=== PATIENT | male | born 1950 | race Caucasian/White ===

== ENCOUNTER 2018-05-27 18:36 | Emergency (ER) | payer BC ==
--- NOTE | 2018-05-27 18:38 | ER Report ---
History and Physical Time Seen By MD: 18:37 HPI/ROS CHIEF COMPLAINT: "Detox" HISTORY OF PRESENT ILLNESS: Patient is a 68-year-old male who has no significant past medical history who is brought to the emergency department and is accompanied by his requesting inpatient alcohol withdrawal. Patient states that he is been a chronic alcoholic over the past 3-4 years. 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 He's noticed towards the end of the day he's having difficulty performing his tasks because of tremor. He denies ever going through alcohol withdrawal before he denies having DTs in the past. He has never been admitted for any psychiatric illness or for any type of substance abuse. Patient denies smoking and denies any other illicit drug use. Patient is not feeling suicidal or homicidal. Patient states his last drink was 2 days ago and since that time he's been feeling anxious, has been having insomnia and and has aforementioned tremor. Patient has 3 brothers all of whom from accidental means however to his brothers were "alcoholics" REVIEW OF SYSTEMS: Constitutional: No fever, no chills. Eyes: No discharge. ENT: No sore throat. Cardiovascular: No chest pain, no palpitations. Respiratory: No cough, no shortness of breath. Gastrointestinal: No abdominal pain, no vomiting. Genitourinary: No hematuria. Musculoskeletal: No back pain. Skin: No rashes. Neurological: No headache. Psychiatric: Alcohol withdrawal, no suicidal or homicidal ideation Allergies: Coded Allergies: cephalexin (Verified Allergy, Intermediate, ITCHING, 05/27/18) Home Meds No Active Prescriptions or Reported Meds Past Medical/Surgical History She denies any significant past medical history. Patient is had multiple surgeries to both shoulders also has had a neck surgery as well. Reviewed Nurses Notes: Yes Constitutional Vital Sign - Last 24 Hours 05/27/18 05/27/18 05/27/18 05/27/18 18:45 18:51 18:54 19:00 Temp 98.1 Pulse 73 73 Resp 16 B/P (MAP) 174/102 143/96 (112) 155/102 (119) Pulse Ox 93 92 O2 Delivery Room Air 05/27/18 05/27/18 19:06 19:21 Pulse 73 80 Pulse Ox 91 92 Physical Exam General/Constitutional: Patient is awake, alert, nontoxic and in no acute respiratory distress. She cooperative Head: Normocephalic and atraumatic. Eyes: Conjunctival clear, Pupils are equal and reactive to light. Extraocular muscles are intact and symmetrical. Sclera are clear and anicteric. Ears:External canals are clear. Tympanic membranes are clear with normal landmarks and light reflex. Nares: No rhinorrhea or bleeding. Turbinates are pink and moist. Oropharyngeal: Mucous membranes are moist. There is no pharyngeal erythema or exudate. There are no palatal petechiae. Uvula is midline and symmetrical. Neck: Supple, no adenopathy. No evidence of JVD; no hepatojugular reflux Cardiovascular: Heart is regular rate and rhythm without audible murmurs, rubs or gallops. Pulmonary: Lungs are clear to auscultation bilaterally. There are no wheezes, rales, or rhonchi. Chest rise is symmetrical Abdomen: Soft, nontender, no guarding or peritoneal signs. Extremities: No gross deformities, No peripheral cyanosis. Able to move all 4 extremities. Neuro: Alert and oriented X3, Cranial nerves 2 thru 12 are intact and symmetrical. Patient has normal gait. Slight intention tremor Skin: No rashes, skin is warm dry and well perfused. Psychiatric: Thought process is logical and goal-directed. Patient is cooperative and pleasant mood is cooperative which is congruent with affect. Patient does not seem to be responding to any internal stimuli. Patient denies any suicidal or homicidal ideation. Medical Decision Making Data Points Result Diagram: 05/27/18192405/27/181924 Laboratory Hematology Test 05/27/18 19:25 05/27/18 19:30 Red Blood Count 4.16 M/uL (4.00-5.60) Mean Corpuscular Volume 98.4 fL (80.0-96.0) Mean Corpuscular Hemoglobin 34.1 pg (26.0-33.0) Mean Corpuscular Hemoglobin Concent 34.7 g/dL (32.0-36.0) Red Cell Distribution Width 13.3 % (11.5-14.5) Mean Platelet Volume 7.1 fL (7.2-11.1) Neutrophils (%) (Auto) 58.8 % (39.4-72.5) Lymphocytes (%) (Auto) 28.5 % (17.6-49.6) Monocytes (%) (Auto) 9.6 % (4.1-12.4) Eosinophils (%) (Auto) 2.1 % (0.4-6.7) Basophils (%) (Auto) 1.0 % (0.3-1.4) Nucleated RBC Relative Count (auto) 0.1 /100WBC Neutrophils # (Auto) 3.1 K/uL (2.0-7.4) Lymphocytes # (Auto) 1.5 K/uL (1.3-3.6) Monocytes # (Auto) 0.5 K/uL (0.3-1.0) Eosinophils # (Auto) 0.1 K/uL (0.0-0.5) Basophils # (Auto) 0.1 K/uL (0.0-0.1) Nucleated RBC Absolute Count (auto) 0.00 K/uL Sodium Level 139 mmol/L (137-145) Potassium Level 5.0 mmol/L (3.5-5.0) Chloride Level 104 mmol/L (98-107) Carbon Dioxide Level 29 mmol/L (22-30) Blood Urea Nitrogen 18 mg/dl (9-21) Creatinine 0.90 mg/dl (0.66-1.25) Glomerular Filtration Rate Calc > 60.0 Random Glucose 134 mg/dl (75-110) Calcium Level 9.3 mg/dl (8.4-10.2) Magnesium Level 2.0 mg/dl (1.7-2.2) Total Bilirubin 0.5 mg/dl (0.2-1.3) Aspartate Amino Transf (AST/SGOT) 43 U/L (0-35) Alanine Aminotransferase (ALT/SGPT) 38 U/L (0-56) Alkaline Phosphatase 59 U/L (0-126) Total Protein 7.1 g/dl (6.3-8.2) Albumin 4.2 g/dl (3.5-5.0) Salicylates Level < 10 mg/L Salicylate Last Dose Date unk Acetaminophen Level < 10 ug/ml Serum Alcohol < 10 mg/dl Urine Color Yellow Urine Clarity Clear Urine pH 5.0 pH (4.8-9.5) Urine Specific [place] 1.031 Urine Protein Negative mg/dL (NEGATIVE) Urine Glucose (UA) Negative mg/dL (NEGATIVE) Urine Ketones Trace mg/dL (NEGATIVE) Urine Blood Negative (NEGATIVE) Urine Nitrite Negative (NEGATIVE) Urine Bilirubin Negative (NEGATIVE) Urine Urobilinogen 2.0 mg/dL (0.2-1.9) Urine Leukocyte Esterase Negative (NEGATIVE) Urine RBC 1 /HPF (0-2/HPF) Urine WBC <1 /HPF (0-5/HPF) Urine Squamous Epithelial Cells Few /LPF (</=FEW) Urine Bacteria Negative /HPF (NONE-FEW) Urine Mucus Few /HPF (NONE-FEW) Urine Opiates Screen Negative Urine Barbiturates Screen Negative Ur Tricyclic Antidepressants Screen Negative Urine Phencyclidine Screen Negative Urine Amphetamines Screen Negative Urine Benzodiazepines Screen Negative Urine Cocaine Screen Negative Urine Cannabinoids Screen Positive Chemistry Test 05/27/18 19:25 05/27/18 19:30 White Blood Count 5.3 k/uL (4.5-11.0) Red Blood Count 4.16 M/uL (4.00-5.60) Hemoglobin 14.2 g/dL (14.0-18.0) Hematocrit 41.0 % (42.0-52.0) Mean Corpuscular Volume 98.4 fL (80.0-96.0) Mean Corpuscular Hemoglobin 34.1 pg (26.0-33.0) Mean Corpuscular Hemoglobin Concent 34.7 g/dL (32.0-36.0) Red Cell Distribution Width 13.3 % (11.5-14.5) Platelet Count 205 K/uL (150-450) Mean Platelet Volume 7.1 fL (7.2-11.1) Neutrophils (%) (Auto) 58.8 % (39.4-72.5) Lymphocytes (%) (Auto) 28.5 % (17.6-49.6) Monocytes (%) (Auto) 9.6 % (4.1-12.4) Eosinophils (%) (Auto) 2.1 % (0.4-6.7) Basophils (%) (Auto) 1.0 % (0.3-1.4) Nucleated RBC Relative Count (auto) 0.1 /100WBC Neutrophils # (Auto) 3.1 K/uL (2.0-7.4) Lymphocytes # (Auto) 1.5 K/uL (1.3-3.6) Monocytes # (Auto) 0.5 K/uL (0.3-1.0) Eosinophils # (Auto) 0.1 K/uL (0.0-0.5) Basophils # (Auto) 0.1 K/uL (0.0-0.1) Nucleated RBC Absolute Count (auto) 0.00 K/uL Glomerular Filtration Rate Calc > 60.0 Calcium Level 9.3 mg/dl (8.4-10.2) Magnesium Level 2.0 mg/dl (1.7-2.2) Total Bilirubin 0.5 mg/dl (0.2-1.3) Aspartate Amino Transf (AST/SGOT) 43 U/L (0-35) Alanine Aminotransferase (ALT/SGPT) 38 U/L (0-56) Alkaline Phosphatase 59 U/L (0-126) Total Protein 7.1 g/dl (6.3-8.2) Albumin 4.2 g/dl (3.5-5.0) Salicylates Level < 10 mg/L Salicylate Last Dose Date unk Acetaminophen Level < 10 ug/ml Serum Alcohol < 10 mg/dl Urine Color Yellow Urine Clarity Clear Urine pH 5.0 pH (4.8-9.5) Urine Specific [place] 1.031 Urine Protein Negative mg/dL (NEGATIVE) Urine Glucose (UA) Negative mg/dL (NEGATIVE) Urine Ketones Trace mg/dL (NEGATIVE) Urine Blood Negative (NEGATIVE) Urine Nitrite Negative (NEGATIVE) Urine Bilirubin Negative (NEGATIVE) Urine Urobilinogen 2.0 mg/dL (0.2-1.9) Urine Leukocyte Esterase Negative (NEGATIVE) Urine RBC 1 /HPF (0-2/HPF) Urine WBC <1 /HPF (0-5/HPF) Urine Squamous Epithelial Cells Few /LPF (</=FEW) Urine Bacteria Negative /HPF (NONE-FEW) Urine Mucus Few /HPF (NONE-FEW) Urine Opiates Screen Negative Urine Barbiturates Screen Negative Ur Tricyclic Antidepressants Screen Negative Urine Phencyclidine Screen Negative Urine Amphetamines Screen Negative Urine Benzodiazepines Screen Negative Urine Cocaine Screen Negative Urine Cannabinoids Screen Positive Toxicology Test 05/27/18 19:25 05/27/18 19:30 Salicylates Level < 10 mg/L Salicylate Last Dose Date unk Acetaminophen Level < 10 ug/ml Serum Alcohol < 10 mg/dl Urine Opiates Screen Negative Urine Barbiturates Screen Negative Ur Tricyclic Antidepressants Screen Negative Urine Phencyclidine Screen Negative Urine Amphetamines Screen Negative Urine Benzodiazepines Screen Negative Urine Cocaine Screen Negative Urine Cannabinoids Screen Positive Urinalysis Test 05/27/18 19:30 Urine Color Yellow Urine Clarity Clear Urine pH 5.0 pH (4.8-9.5) Urine Specific [place] 1.031 Urine Protein Negative mg/dL (NEGATIVE) Urine Glucose (UA) Negative mg/dL (NEGATIVE) Urine Ketones Trace mg/dL (NEGATIVE) Urine Blood Negative (NEGATIVE) Urine Nitrite Negative (NEGATIVE) Urine Bilirubin Negative (NEGATIVE) Urine Urobilinogen 2.0 mg/dL (0.2-1.9) Urine Leukocyte Esterase Negative (NEGATIVE) Urine RBC 1 /HPF (0-2/HPF) Urine WBC <1 /HPF (0-5/HPF) Urine Squamous Epithelial Cells Few /LPF (</=FEW) Urine Bacteria Negative /HPF (NONE-FEW) Urine Mucus Few /HPF (NONE-FEW) EKG/Imaging EKG Interpretation EKG shows normal sinus rhythm with a right bundle branch pattern and left anterior fascicular block. Ventricular rate is 75 bpm. This EKG is compared to one from April 102013 ventricular rate at that time was 60 bpm but the right bundle branch pattern along the left anterior fascicular block was seen at that time. ED Course/Re-evaluation ED Course 05/27/2018 7:17:55 pm . Pleasant and cooperative here for inpatient alcohol detox. Plan will be medical screening evaluation and will call for admission if bed available. Re-evaluation 05/27/2018 8:01:43 pm history physical exam all pertinent lab data ED course were reviewed with ; patient accepted for admission at this time. Decision to Disposition Date: May 27, 2018 Decision to Disposition Time: 20:01 Depart Departure Latest Vital Signs Vital Signs Date Time Temp Pulse Resp B/P (MAP) Pulse Ox O2 Delivery O2 Flow Rate FiO2 05/27/18 19:21 80 92 05/27/18 19:00 155/102 (119) 05/27/18 18:45 98.1 16 Room Air Impression: Primary Impression: Alcohol withdrawal Condition: Condition Unchanged Disposition: XFER TO [facility] (to Dr wilkins) New Scripts No Active Prescriptions or Reported Meds Problem Qualifiers Primary Impression: Alcohol withdrawal Complication of substance-induced condition: uncomplicated Qualified Codes: F10.230 - Alcohol dependence with withdrawal, uncomplicated INOCENCIO CAMPOS MD May 27, 2018 18:38
[2018-05-27] MEDS ORDERED: DIAZEPAM 10 MG TAB PO ONE ×2 (19:10→20:05)
--- NOTE | 2018-05-27 19:27 | EKG ---
FACILITY: [facility] PATIENT NAME: INOCENCIO KRISHNAN : [id number] MR: [id number] V: [id number] EXAM DATE: ORDERING PHYSICIAN: INOCENCIO CAMPOS TECHNOLOGIST: KIT Aguilar Reason : Blood Pressure : / mmHG Vent. Rate : 075 BPM Atrial Rate : 075 BPM P-R Int : 140 ms QRS Dur : 162 ms QT Int : 426 ms P-R-T Axes : -27 -85 015 degrees QTc Int : 475 ms Sinus rhythm Left axis Right bundle branch block Abnormal ECG Similar to previous Confirmed by MANDY PAULINO ([id number] on 05/27/2018 9:19:07 PM Referred By: Confirmed By:MANDY PAULINO
[2018-05-27 19:33] LABS: PLATELET COUNT, AUTOMATED 205 K/uL (150-450)
[2018-05-27 20:21] VITALS: BP 138/86
== END 2018-05-27 21:10 ==
LOC: ER 18:46
DX: F10.230 Alcohol dependence with withdrawal, uncomplicated (principal); I45.10 Unspecified right bundle-branch block; R94.31 Abnormal electrocardiogram [ECG] [EKG]
CPT/HCPCS: 36415; 80305; 80320; 80329; 81001; 82040; 82247; 82310; 82374; 82435; 82565; 82947; 83735; 84075; 84132; 84155; 84295; 84443; 84450; 84460; 84520; 85025; 93005; 99284

== ENCOUNTER 2018-05-27 20:22 | Inpatient (IN) | payer BC, MEDICARE ==
[~2018-05-27] VITALS: Ht 180.3 cm; Wt 77.1 kg
[2018-05-27] MEDS ORDERED: LOPERAMIDE HCL 2 MG CAP PO PRN (21:05)
[2018-05-27] MEDS ORDERED: MAG HYD/AL HYD/SIMETH 30ML UDC PO PRN (21:05)
[2018-05-27 21:45] VITALS: BP 138/85
[2018-05-27] MEDS: DIAZEPAM 10 MG TAB PO PRN (22:46)
[2018-05-28 01:54] VITALS: BP 160/108
[2018-05-28] MEDS: DIAZEPAM 10 MG TAB PO PRN ×4 (02:04→21:14)
[2018-05-28 06:38] VITALS: BP 124/94
[2018-05-28] MEDS: THIAMINE HCL 100 MG TAB PO SCH (08:14)
[2018-05-28] MEDS: MULTIVITAMINS TAB PO SCH (08:14)
[2018-05-28] MEDS: FOLIC ACID 1 MG TAB PO SCH (08:14)
[2018-05-28 10:35] VITALS: BP 128/78
[2018-05-28 17:40] VITALS: BP 132/70
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
[2018-05-28 21:55] VITALS: BP 102/72
[2018-05-29 04:00] VITALS: BP 138/92
[2018-05-29] MEDS: FOLIC ACID 1 MG TAB PO SCH (08:16)
[2018-05-29] MEDS: THIAMINE HCL 100 MG TAB PO SCH (08:16)
[2018-05-29] MEDS: MULTIVITAMINS TAB PO SCH (08:16)
--- NOTE | 2018-05-29 11:05 | BHS Progress Note ---
[facility] - Subjective Progress Notes Subjective Patient doing well today, with active alcohol withdrawal ongoing, no other complaints. Will continue treatment, with likely discharge tomorrow. No other concerns. Suicidal Ideation: None Homicidal Ideation: None [facility] - Objective Physical Exam Vital Signs Vital Signs Date Time Temp Pulse Resp B/P (MAP) Pulse Ox O2 Delivery O2 Flow Rate FiO2 05/29/18 04:00 99.1 63 138/92 (107) 96 Room Air 05/28/18 17:40 16 Muscle Strength and Tone: WNL Gait and Station: Steady [facility] Medications Reviewed: Side Effects, Benefits of Medication, Risks Allergies Reviewed: Yes Mental Status Exam General Appearance: Casual, Well Groomed, Good Eye Contact, Cooperative, Polite, Good Interaction, Psychomotor Agitation (minimal); No Bizarre Mannerisms, No Tics Speech: Clear, Spontaneous, Normal Rate, Normal Rhythm, Normal Volume, Normal Tone Mood: Euthymic Affect: Full and Appropriate, Calm; No Tearful, No Anxious, No Agitated Thought Process: Organized, Logical, Goal Directed; No Loose Associations, No Flight of Ideas Thought Content: No Suicidal Ideation, No Homicidal Ideation, No Delusions, No Auditory Halllucinations, No Visual Hallucinations, No Thought Broadcasting, No Ideas of Reference, No Obsessions, No Compulsions Sensorium: Clear Cognition: Alert & Oriented-Person, Alert & Oriented-Place, Alert & Oriented- Time, [id number]-[id number]-Bhyuhpokd Memory: Immediate, Recent, Remote Intelligence: Average Insight Judgment: Fair (in absence of alcohol) [facility] Assessment and Plan Fvgh-[id number] Encounter Date: May 29, 2018 Ccrb-ad-Peuy Encounter Time: 10:30 [facility] Plan: Necessary Precautions, Individual/Group Therapy, Admin/Titrate Meds, Educate Patient Tobacco Medications: Started Multpiple Antipsychotics Used: No Problems: (1) Alcohol withdrawal Status: Acute (2) Alcohol use disorder, severe, in controlled environment Status: Chronic Condition 1. continue treatment. 2. possible discharge tomorrow. Problem Qualifiers (1) Alcohol withdrawal: Complication of substance-induced condition: uncomplicated Qualified Codes: F10.230 - Alcohol dependence with withdrawal, uncomplicated DEDRICK HUSSEIN MD May 29, 2018 11:05
[2018-05-29 11:30] VITALS: BP 132/70
[2018-05-29] MEDS: IBUPROFEN 800 MG TAB PO PRN ×2 (11:35→19:44)
[2018-05-29] MEDS: DIAZEPAM 10 MG TAB PO PRN ×2 (11:54→19:44)
[2018-05-29 18:14] VITALS: BP 122/82
[2018-05-30 06:00] VITALS: BP 174/93
[2018-05-30] MEDS: THIAMINE HCL 100 MG TAB PO SCH (07:45)
[2018-05-30] MEDS: MULTIVITAMINS TAB PO SCH (07:45)
[2018-05-30] MEDS: IBUPROFEN 800 MG TAB PO PRN (07:45)
[2018-05-30] MEDS: FOLIC ACID 1 MG TAB PO SCH (07:45)
[2018-05-30 10:15] VITALS: BP 158/86
[2018-05-30] MEDS ORDERED: TRAZ50TA34 PO (10:38)
[2018-05-30] MEDS ORDERED: FOLI-68 PO (10:38)
[2018-05-30] MEDS ORDERED: MULT-859 PO (10:39)
[2018-05-30] MEDS ORDERED: THIA100T2 PO (10:39)
[2018-05-30 11:27] VITALS: BP 120/76
--- NOTE | 2018-05-31 21:28 | SCHAAF DISCHARGE ---
DATE OF ADMISSION: May 27, 2018 DATE OF DISCHARGE: May 30, 2018 ATTENDING PHYSICIAN Volodymyr Rankin MD The patient was seen approximately 1030 hours on 30 May 2018 for note concerning this dictation. FINAL DIAGNOSES 1. Alcohol use disorder, severe. 2. Patient having work stressors. 3. Overall supportive relationship with spouse. 4. Alcohol withdrawal now considered complete. REASON FOR ADMISSION This is a very pleasant, , 68-year-old male who presented to the hospital on a voluntary basis to get help with alcohol withdrawal, patient attempting to quit at home, could not complete withdrawal successfully at home. Patient deciding to quit using alcohol at this time due to its impact on his work and recently getting a DUI for the first time. Please see H and P for full details. Alcohol withdrawal was considered moderate in nature and considered complete by time of discharge. Patient treated with diazepam, and patient discharged to home. PHYSICAL EXAMINATION Please see emergency room note. Notable for: GENERAL: A 68-year-old male in active alcohol withdrawal. VITAL SIGNS: Vital signs at the time of admission, temperature 98.1, pulse 73, respiratory rate 16, blood pressure 174/102, and pulse oximetry 93% on room air. At [facility] from [facility], vital signs showed temperature 97.7, pulse 66, respiratory rate 15, blood pressure 120/75, pulse oximetry 94% on room air. LABORATORY DATA CBC at time of admission notable for hematocrit low at 41.0, MCV elevated at 98.4 with an MCH elevated at 34.1. CMP overall unremarkable. AFP showing mild elevation at 43. Random glucose 134. TSH 1.47. Trace urine ketones were present, and urobilinogen present in urine. Toxicology screen positive for cannabis, negative for substances of abuse with an undetectable serum alcohol at time of admission. MENTAL STATUS EXAMINATION AT TIME OF DISCHARGE GENERAL APPEARANCE, BEHAVIOR, AND ATTITUDE: This is a very pleasant, 68-year-old male interacting well with this provider, other treatment team staff, and his present during interview. No psychomotor agitation or retardation seen. No bizarre mannerisms or tics. Making good eye contact. Not tearful. SPEECH: Within normal limits. Regular rate, rhythm, volume, and tone. MOOD: Described as good. AFFECT: Full and mood congruent. THOUGHT PROCESSES: Goal directed, logical. No loose associations or flight of ideas. THOUGHT CONTENT: Free of auditory or visual hallucinations, ideas of reference, thought broadcastings, delusions, obsessions, compulsions. The patient adamantly denying suicidal or homicidal ideation. SENSORIUM: Clear. COGNITION: Alert and oriented to person, place, time, and situation. MEMORY: Immediate, recent, and remote estimated intact. INTELLIGENCE: Average based on interview. INSIGHT AND JUDGMENT: Considered grossly intact in the absence of alcohol or illicit substance use. RESULTS OF TESTING Imaging: None. Laboratory data: See above. CONSULTATIONS None. TREATMENT Patient received medications, participated in individual and group therapy. HOSPITAL COURSE Patient took an active role in his treatment including individual and group therapy throughout his stay. Alcohol withdrawal was treated to completion with diazepam per [facility] protocol. CONDITION OF PATIENT ON DISCHARGE Stable. Considered a minimal risk to himself or others and appropriate for outpatient care. DISPOSITION The patient discharged to home in care of his . He would follow up with outpatient medication management and therapy as scheduled, given the crisis line should symptoms return. He agreed to abstain from all alcohol or illicit substances, go to , and obtain a sponsor. DISCHARGE MEDICATIONS 1. Folic acid 1 mg daily. 2. Multivitamin with minerals daily. 3. Thiamine 100 mg daily. 4. Trazodone 50 to 150 mg p.o. at bedtime. Risks, benefits, and alternatives of above discharge plan were discussed. Informed consent was given to proceed with the above discharge plan by this competent patient and the patient's present at time of discharge. [place]
== END 2018-05-30 11:42 | disposition home or self-care (01) | DRG 897 ==
LOC: BHS 20:22
PROVIDERS: ADMIT Psychiatry & Neurology Psychiatry; ATTEND Psychiatry & Neurology Psychiatry
DX: F10.230 Alcohol dependence with withdrawal, uncomplicated (principal); F12.90 Cannabis use, unspecified, uncomplicated; G89.21 Chronic pain due to trauma; Z56.6 Other physical and mental strain related to work; Z81.1 Family history of alcohol abuse and dependence; Z81.3 Family history of other psychoactive substance abuse and dependence; Z88.1 Allergy status to other antibiotic agents

== ENCOUNTER → 2019-02-03 | Outpatient (CLI) | payer BC, MEDICARE ==
[~2019-02-03] MED LIST: FOLI-68 PO; MULT-859 PO; THIA100T2 PO; TRAZ50TA52 PO
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
== END ==
LOC: RAD 08:09
PROVIDERS: ATTEND Nurse Practitioner Psychiatric/Mental Health
DX: S42.024A Nondisplaced fracture of shaft of right clavicle, initial encounter for closed fracture (principal)